=== PATIENT | male | born 1980 | race Asian ===

== ENCOUNTER → 2017-02-03 | Outpatient (CLI) | payer BC ==
[2017-02-06 14:53] LABS: QUANTIF TB AG-NIL <0.00 IU/ML; QUANTIFERON NIL 0.07 IU/ML
== END | disposition home or self-care (01) ==
LOC: C.LABSPEC 12:28 → EDBD 12:28
PROVIDERS: ATTEND Family Medicine
DX: Z11.3 Encounter for screening for infections with a predominantly sexual mode of transmission (principal); Z11.1 Encounter for screening for respiratory tuberculosis

== ENCOUNTER → 2017-07-03 | Outpatient (CLI) | payer OTHER ==
--- NOTE | 2017-07-03 11:36 | DIAGNOSTIC IMAGING REPORT ---
C-SPINE ROUTINE 4 OR 5 VIEWS CLINICAL HISTORY: CERVICALGIA COMPARISON STUDY: No previous studies for comparison. FINDINGS: There is reversal of the normal cervical lordosis. There is a cervical dextroscoliosis. No acute fractures are visualized. There are no subluxations. There is benign-appearing calcification within the ligamentum nuchae. IMPRESSION: Kyphoscoliosis. No fractures identified. Electronically signed by: Maurilio Sinclair M.D. 07/03/2017 11:34 AM Dictated Date/Time: 07/03/2017 11:33 AM
== END | disposition home or self-care (01) ==
LOC: C.RAD 11:14
PROVIDERS: ATTEND Nurse Practitioner Family
DX: M54.2 Cervicalgia (principal)